=== PATIENT | male | born 1990 | race Caucasian/White ===

== ENCOUNTER 2018-07-09 20:01 | Emergency (ER) | payer BC ==
[~2018-07-09] VITALS: Ht 172.7 cm; Wt 75.0 kg
[2018-07-09] MEDS ORDERED: ONDANSETRON 2MG/ML, 2ML ONE (20:15)
[2018-07-09] MEDS ORDERED: LORazepam 2 MG/ML, 1ML IVPush ONE (20:30)
[2018-07-09] MEDS ORDERED: SODIUM CHLORIDE FLUSH 10ML SYR IVF ONE (20:30)
[2018-07-09] MEDS ORDERED: ONDANSETRON 2MG/ML, 2ML IVPush ONE (20:30)
[2018-07-09] MEDS ORDERED: methylPREDNISolone SOD SUCC 125 MG/2 ML IVPush SCH (20:30)
[2018-07-09] MEDS ORDERED: methylPREDNISolone SOD SUCC 125 MG/2 ML ONE (20:32)
[2018-07-09 20:39] LABS: MEAN CORPUSCULAR HEMOGLOBIN 33.9 pg (27.5-34.5); MEAN CORPUSCULAR HGB CONC 34.7 g/dL (33.2-36.2); MEAN CORPUSCULAR VOLUME 97.8 fL (81-97); MEAN PLATELET VOLUME 8.3 fL (7.4-10.4); PLATELET COUNT 262 x10^3/uL (130-400); RED BLOOD COUNT 5.26 x10^6/uL (4.38-5.82); RED CELL DISTRIBUTION WIDTH 12.6 % (9.4-14.8)
--- NOTE | 2018-07-09 20:42 | NUR ---
PT PRESENTS TO ED C/O POSSIBLE ALLERGIC RXN APPROX 45 MIN BLOCK SORTER. PT CONSUMED NUTS. VOMMITTING, RAPID HR AND RESP UPON ARRIVAL. LUNGS CTA. PT VOMMITING. IV ACCESS ESTABLISHED AND MEDICATED PER ORDER. NO PT RESTING ON GURNEY WITHOUT VOMITING. SPEAKING IN FULL SENTANCES AND RESP EVEN AND UNLABORED. WILL CONTINUE TO MONITOR CLOSELY. FAMILY AT BEDSIDE.
[2018-07-09 20:49] LABS: ALANINE AMINOTRANSFERASE 24 U/L (12-78); ALBUMIN 4.2 g/dL (3.4-5.0); ANION GAP 11 mmol/L (5-15); CALCIUM 8.7 mg/dL (8.5-10.1); CHLORIDE 108 mmol/L (98-107); CREATININE 1.08 mg/dL (0.7-1.3)
[2018-07-09 20:52] LABS: ALKALINE PHOSPHATASE 119 U/L (45-117); BILIRUBIN,TOTAL 0.7 mg/dL (0.2-1.0); TOTAL PROTEIN 7.5 g/dL (6.4-8.2)
[2018-07-09 21:00] LABS: BASOPHILS # (AUTO) 0.07 x10^3/uL (0-0.1); BASOPHILS % (AUTO) 1 % (0-1); EOSINOPHILS # (AUTO) 0.07 x10^3/uL (0-0.4); EOSINOPHILS % (AUTO) 1 % (1-7); LYMPHOCYTES # (AUTO) 5.51 x10^3/uL (1-3.4); LYMPHOCYTES % (AUTO) 46 % (22-44); MD SCAN; MONOCYTES # (AUTO) 0.52 x10^3/uL (0.2-0.8); MONOCYTES % (AUTO) 4 % (2-9); NEUTROPHILS # (AUTO) 5.76 x10^3/uL (1.8-6.8); NEUTROPHILS % (AUTO) 48 % (42-75)
[2018-07-09] MEDS ORDERED: methylPREDNISolone SOD SUCC 125 MG/2 ML IVPush ONE (21:00)
[2018-07-09 22:11] VITALS: BP 105/60
--- NOTE | 2018-07-09 22:12 | NUR ---
Patient/Caregiver given discharge instructions and they have confirmed that they understand the instructions. Patient ambulatory with steady gait. Pt left with all personal belongings.
[2018-07-09] MEDS ORDERED: LORazepam 2 MG/ML, 1ML ONE (22:29)
== END 2018-07-09 22:13 | disposition home or self-care (01) ==
LOC: ED 21:39
DX: T78.05XA Anaphylactic reaction due to tree nuts and seeds, initial encounter (principal); R10.84 Generalized abdominal pain; R11.2 Nausea with vomiting, unspecified; Y92.9 Unspecified place or not applicable
CPT/HCPCS: 36415; 74021; 80053; 83690; 85025; 96374; 96375; 99284; J2060; J2405; J2930